=== PATIENT | female | born 1960 | race Caucasian/White ===

== ENCOUNTER 2016-11-24 10:13 | Day surgery (SDC) | payer BC ==
[~2016-11-24 10:13] MED LIST: Lactated Ringers 1,000 ML IV SCH
[2016-11-24] MEDS ORDERED: Lactated Ringers 1,000 ML IV SCH ×2 (10:15→13:30)
[2016-11-24] MEDS ORDERED: Sodium Chloride 0.9% 10 ML Syringe FLUSH PRN (10:15)
[2016-11-24] MEDS ORDERED: Morphine 10 MG/ML Syringe ONE ×2 (11:57→12:26)
[2016-11-24] MEDS ORDERED: Lactated Ringers 1,000 ML IV ONE (12:00)
[2016-11-24] MEDS ORDERED: fentaNYL 100 MCG/2 ML SDV IV ONE (12:00)
[2016-11-24] MEDS ORDERED: Ketorolac 30 MG/ML SDV IVPUSH ONE (12:00)
[2016-11-24] MEDS ORDERED: HYDROmorphone 2 MG/ML SDV IV ONE (12:00)
[2016-11-24] MEDS ORDERED: diphenhydrAMINE 50 MG/ML SDV IV ONE (12:00)
[2016-11-24] MEDS ORDERED: Dexamethasone 4 MG/ML 5 ML MDV IVPUSH ONE (12:00)
[2016-11-24] MEDS ORDERED: ceFAZolin 1 GM Vial IV ONE (12:00)
[2016-11-24] MEDS ORDERED: Propofol 200 MG/20 ML SDV IV ONE (12:00)
[2016-11-24] MEDS ORDERED: Lidocaine 2% 100 MG/5 ML Syringe IVPUSH ONE (12:00)
[2016-11-24] MEDS ORDERED: Ondansetron 4 MG/2 ML SDV IVPUSH ONE (12:00)
[2016-11-24] MEDS ORDERED: Midazolam 1 MG/ML 2 ML SDV IV ONE (12:00)
[2016-11-24] MEDS ORDERED: Bupivacaine 0.5%/EPINEPHrine 1:200,000 50 ML MDV ONE (12:27)
[2016-11-24] MEDS ORDERED: EPINEPHrine 1:1000 1 MG/ML SDV ONE ×2 (12:27)
[2016-11-24] MEDS ORDERED: Acetaminophen/HYDROcodone 325-5 MG Tab PO PRN (13:24)
[2016-11-24] MEDS ORDERED: Promethazine 6.25 MG in Sodium Chloride 0.9% 50 ML IV PRN (13:24)
[2016-11-24 15:14] VITALS: BP 133/87
--- NOTE | 2016-11-24 21:06 | OR ---
DATE OF OPERATION: 11/24/2016 SURGEON: Juan Lang MD POSTOPERATIVE DIAGNOSIS: Complex lateral meniscal tear left knee. POSTOPERATIVE DIAGNOSES: 1. Complex lateral meniscal tear left knee. 2. 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 3. Suprapatellar plica. PROCEDURE PERFORMED: 1. Diagnostic arthroscopy. 2. Joint debridement with trimming of chondral loose flaps. 3. Suprapatellar plica. OPERATIVE NOTE: The patient was taken to the operating room, placed on the operating room table in the supine position. A general anesthetic was then administered. The patient then had a tourniquet placed around the left thigh near the inguinal area. Left lower extremity was then elevated and the tourniquet inflated to 250 mmHg pressure. End of the table was then dropped to 90 degrees and the leg positioned appropriately in the leg patel. The patient's had a sterile ChloraPrep then performed from the inferior margin of the leg patel to the tip of the toes. Sterile draping procedure was then carried out. After the sterile prep and drape had been performed, four incisions were made over the left knee. They were anterior superomedial, anterior superolateral, anterior inferomedial, and anterior inferolateral. During the operative procedure, the inflow cannula was inserted in the superior lateral portal, so the complete examination and evaluation could be carried out. After instilling 100 mL of sterile normal saline in the joint, the scope was introduced, she had significant inflammation of the patellar fat pad and this was trimmed, so we could facilitate water flow throughout the knee. There was hyperemia with it as well suggesting an inflammatory response. The patient also had a suprapatellar plica. This had to be removed to allow good water flow. The patella tracked well. No loose bodies were noted. There were some small flap tears of the chondromalacia in the patellofemoral articulation and these were addressed with operative arthroscopic debridement. Examination of medial compartment revealed no evidence of meniscal tears. There was a little thinning of the posterior horn, but no instability or no tears. No chondromalacia. Moderate amount of hypertrophic synovitis in the medial gutter and this was removed. Examination of the intercondylar notch through the anterior cruciate ligament to be intact and taut to probing, normal bulk and tensile strength. Large inflamed ligamentum mucosum was noted and removed. Examination of the lateral compartment revealed some flap tearing of the femoral condyle in several different parts. These were removed with a curved Synovator superficially. The patient also had some instability and tearing of the posterior horn, sort of a root tear, this was cut back to a stable border. A very complex tear of the lateral meniscus was noted and this was cut back to a stable border as well. Part of the lateral meniscus had frayed off superiorly and this fragment was removed. Significant hypertrophic synovitis and lateral gutter was noted and this was removed. Upon completion of the scope in the lateral compartment, we again probed and there was no evidence of tears or instability that were felt to be causing any problems. No loose bodies were noted. Therefore the knee was liberally irrigated, all instrumentation removed, sterile dressings applied, leg patel removed, and tourniquet deflated. Prior to placing the dressings, we sutured each incision with #2 Ethilon. Once this was done, we then injected Marcaine and morphine. The patient did also received 1 g of Ancef as well as 30 mg of Toradol IV. ESTIMATED BLOOD LOSS: Approximately 10 mL. COMPLICATIONS: None. /[id number] ELVIS/JENNIFER MTDAdriana
== END 2016-11-24 14:55 | disposition home or self-care (01) ==
LOC: FB.SDS 10:13
PROVIDERS: ATTEND Orthopaedic Surgery
DX: M23.262 Derangement of other lateral meniscus due to old tear or injury, left knee (principal); M22.42 Chondromalacia patellae, left knee; M67.52 Plica syndrome, left knee; I10 Essential (primary) hypertension; Z79.899 Other long term (current) drug therapy; Z98.890 Other specified postprocedural states
CPT/HCPCS: 29822; A9270; J0171; J0690; J1100; J1170; J1200; J1885; J2250; J2270; J2405; J2704; J3010; J7120

== ENCOUNTER 2020-10-24 06:46 | Day surgery (SDC) | payer BC ==
[~2020-10-24 06:46] MED LIST changes: -Lactated Ringers 1,000 ML IV SCH; +Sodium Chloride 0.9% 10 ML Syringe FLUSH PRN
[2020-10-24] MEDS ORDERED: Lidocaine 1% PF 2 ML SDV INJECT ONE (06:47)
[2020-10-24] MEDS ORDERED: Propofol 200 MG/20 ML SDV IV ONE (06:47)
[2020-10-24] MEDS: Lactated Ringers 1,000 ML IV SCH (07:28)
--- NOTE | 2020-10-24 08:21 | PREOP ---
ADMISSION DATE: 10/24/2020 HISTORY OF PRESENT ILLNESS: This is a 59-year-old white female who presents for screening colonoscopy. She notes just some occasional issues with hemorrhoids. SOCIAL HISTORY: The patient is . 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 Does not smoke. Has an occasional drink. MEDICATIONS: Include; 1. Flaxseed oil. 2. Zofran 40 mg 3 times a day as needed for nausea. 3. Glucosamine and chondroitin 1 tablet per day. 4. Calcium carbonate/vitamin D 600/400 unit tablet. 5. Hydrochlorothiazide 12.5 mg daily. 6. Norvasc 10 mg 2 tablets twice a day. 7. Estrace vaginal cream. PAST MEDICAL HISTORY: Significant for arthritis, hypertension, history of basal cell carcinoma. PAST SURGICAL HISTORY: Significant for , hernia repair, tooth root removal, and lipoma excision. FAMILY HISTORY: Significant for hypertension, dementia, hypercholesterolemia, heart disease and glaucoma. ALLERGIES: She has no known drug allergies. REVIEW OF SYSTEMS: Patient denies any issues with her eyes, ears, nose or throat, lungs, heart, GI system other than that mentioned in history and physical or neurologic issues. PHYSICAL EXAMINATION: GENERAL: This is a well-developed, well-nourished white female, appearing in no acute distress. HEENT: Grossly within normal limits. LUNGS: Clear to auscultation. HEART: Regular rate and rhythm. ABDOMEN: Soft, nontender. ASSESSMENT: Colon cancer screening. PLAN: C-scope. Procedure and risks explained to the patient to include bleeding, infection secondary to perforation, missed lesion. The patient expresses understanding and she asked us to proceed. /[id number] /MODL MTDD
--- NOTE | 2020-10-24 08:40 | PCM.OPNOTE ---
- General Post-Op/Procedure Note Date of Surgery/Procedure: 10/24/20 Operative Procedure(s): c scope with hot loop snare bx Findings: rectal polyp scattered sigmoid diverticulosis internal hemorrhoid Pre Op Diagnosis: screening for colon cancer Post-Op Diagnosis: rectal polyp. scattered sigmoid diverticulosis. internal hemorrhoid Anesthesia Technique: MAC Primary Surgeon: Garfield Valerio Anesthesia Provider: Juan Neal Pathology: rectal polyp Complications: None Condition: Good Free Text/Narrative:: see dictation #[id number]
[2020-10-24 09:45] VITALS: BP 118/78; PULSE 66
--- NOTE | 2020-10-25 09:36 | OR ---
DATE OF OPERATION: 10/24/2020 SURGEON: Garfield Valerio MD PROCEDURE PERFORMED: Colonoscopy with hot loop snare biopsy. PREOPERATIVE DIAGNOSIS: Colon cancer screening. POSTOPERATIVE DIAGNOSIS: Internal hemorrhoids, rectal polyp of the proximal rectum, and scattered diverticula of the sigmoid. INDICATIONS FOR PROCEDURE: This is a 59-year-old white female who presents for routine screening exam. She is without complaints. She was offered and accepted C-scope. DESCRIPTION OF PROCEDURE: After an excellent IV sedation was administered, digital rectal exam was performed. No marked abnormality was noted. Flexible colonoscope was inserted and advanced to the cecum. The prep was excellent. The following findings were noted. After identifying the cecum with the usual anatomic markers, the scope was slowly withdrawn. Ascending colon, unremarkable. Transverse colon, unremarkable. Descending colon, unremarkable. Sigmoid, occasional diverticulum, approximately 2 to 3 that were noted on insertion and withdrawal. The rectum; at the proximal rectum, a small pedunculated polyp, which was easily biopsied with the hot loop snare and submitted in a container. The remainder of the rectal exam was unremarkable. On retroflexion of the scope, there was some evidence of internal hemorrhoids. No active bleeding was noted. The patient tolerated the procedure well, was taken to recovery room in good condition. /[id number] /MODL
== END 2020-10-24 09:07 | disposition home or self-care (01) ==
LOC: FB.SDS 06:46
PROVIDERS: ATTEND Surgery
DX: Z12.11 Encounter for screening for malignant neoplasm of colon (principal); D12.8 Benign neoplasm of rectum; K64.8 Other hemorrhoids; K57.30 Diverticulosis of large intestine without perforation or abscess without bleeding; I10 Essential (primary) hypertension; Z79.899 Other long term (current) drug therapy
CPT/HCPCS: 00812-QZ; 88305; J2704; J7120